=== PATIENT | female | born 1995 | race Caucasian/White ===

== ENCOUNTER 2018-09-28 21:38 | Emergency (ER) | payer OTHER ==
[~2018-09-28] VITALS: Ht 167.6 cm; Wt 68.0 kg
[2018-09-28 21:42] VITALS: Ht 167.6 cm; Wt 68.0 kg
[2018-09-28 22:29] LABS: BASOPHIL % 0.4 % (0-2); PLATELET COUNT 227 x10^3mcL (130-400)
[2018-09-28 22:38] LABS: CALCIUM 8.3 mg/dL (8.5-10.1); CARBON DIOXIDE 26.8 mmol/L (21-32); CHLORIDE SERUM 107 mmol/L (98-107); CREATININE SERUM 0.9 mg/dL (0.6-1.0); GFR1 > 60 mL/min; GLUCOSE SERUM 100 mg/dL (74-106); POTASSIUM SERUM 3.7 mmol/L (3.5-5.1); SODIUM SERUM 142 mmol/L (136-145)
[2018-09-28 22:43] LABS: ALBUMIN 3.5 g/dL (3.4-5.0); ALKALINE PHOSPHATASE 55 U/L (46-116); ALT/SGPT 20 U/L (14-59); AST/SGOT 13 U/L (15-37); BILIRUBIN TOTAL 0.27 mg/dL (0.20-1.00); LIPASE 106 IU/L (73-393); TOTAL PROTEIN, SERUM 6.9 g/dL (6.4-8.2)
[2018-09-29 00:07] VITALS: BP 106/80
== END 2018-09-29 00:07 | disposition home or self-care (01) ==
LOC: ED 21:38
PROVIDERS: Emergency Medicine
DX: K52.9 Noninfective gastroenteritis and colitis, unspecified (principal)
CPT/HCPCS: J1885; J2405; J7030